=== PATIENT | male | born 1975 | race Caucasian/White ===

== ENCOUNTER 2017-02-02 19:40 | Emergency (ER) | payer BC ==
[~2017-02-02 19:40] MED LIST: Sodium Chloride Irrig Solution 250 ML BOT ONE
[2017-02-02] MEDS ORDERED: Bupivacaine PF 0.5% 30 ML VIAL ONE (19:50)
[2017-02-02] MEDS ORDERED: Triple Antibiotic Oint 1 GM Packet ONE (20:29)
--- NOTE | 2017-02-02 20:30 | RAD ---
TWO VIEWS OF THE RIGHT RING FINGER: 02/02/17 HISTORY: Injury to right ring finger. FINDINGS: There is a transverse fracture involving the middle aspect of the distal phalanx right ring finger w ith adjacent tiny osseous fracture fragments. There is only slight separation of the fracture fragme nts. There is overlying subcutaneous soft tissue swelling. This fracture is near the base of the martha l bed. IMPRESSION: Transverse fracture distal phalanx right ring finger with overlying soft tissue swelling. POS: PAPA
== END 2017-02-02 21:00 | disposition home or self-care (01) ==
LOC: MADERS 19:40
DX: S62.634A Displaced fracture of distal phalanx of right ring finger, initial encounter for closed fracture (principal); F41.9 Anxiety disorder, unspecified; J45.909 Unspecified asthma, uncomplicated; Z87.891 Personal history of nicotine dependence; Z79.899 Other long term (current) drug therapy; W26.8XXA Contact with other sharp object(s), not elsewhere classified, initial encounter
CPT/HCPCS: 11750; 12001; S0020